=== PATIENT | male | born 1950 | race Caucasian/White ===

== ENCOUNTER → 2017-01-02 | Day surgery (SDC) | payer MEDICARE, MEDICAID ==
[2017-01-02] VITALS (10 sets, daily range): BP systolic 130–151; BP diastolic 74–95; PULSE 52–62; RESP 15–18; O2SAT 99
[~2017-01-02] VITALS: Ht 175.3 cm; Wt 86.2 kg
[~2017-01-02] MED LIST: 0.9% Sodium Chloride 1,000 ML IV SCH; ALBU8.5H2 IH; ASPI-973 PO; Bupivacaine-MPF 0.5% 30 mL Inj ONE; CETI10CA PO; DIPH25CA6 PO; HYDROcodone-APAP 5-325 mg Tablet PO PRN; LOSA25TA21 PO; OMEP20CA11 PO; OXYC-466 PO; OXYC10TA8 PO; Ondansetron 2 mg/mL 2 mL Inj IVPUSH PRN; SIMV20TA4 PO; Sodium Chloride LOK Flush 10 mL Syringe IVFLUSH PRN; TIOT18CA3 IH; Vancomycin 1,000mg/200 mL NS IV ONE; Vancomycin Inj 1,000 MG in IV Premix 1 EACH IV ONE; fentaNYL-PF 50 mCg/mL 2 mL Inj ONE
[2017-01-02 08:35] LABS: BASOPHILS % (AUTO) 0.9 % (0-3); EOSINOPHILS % (AUTO) 4.2 % (0-5); MONOCYTES % (AUTO) 9.4 % (4-12); Mean Corpuscular Hemoglobin 31.3 pg (27.0-35.0); Mean Corpuscular Volume 90.9 fL (81-100); NEUTROPHILS % (AUTO) 59.1 % (40-74); Platelet Count 243 bil/L (150-400)
[2017-01-02 08:38] LABS: INR 0.95 ratio
--- NOTE | 2017-01-02 08:39 | NUR ---
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 Pt. has 2 patent peripheral IVs. He is in SB, high 50s. Discussed pre- and post- procedural expectations with pt. and significant other. Informed consent was signed. 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 Report given to Renee.
--- NOTE | 2017-01-02 09:42 | PCM.PROC ---
Procedure Note Date of Service: Jan 02, 2017 Pre Procedure Diagnosis: Recurrent syncope and collapse Right bundle branch block Post Procedure Diagnosis: Syncope Procedure: Implantable loop recorder implantation Provider and [place] Machine Operator: Hermann Valdez Jr Scrub Indication for Procedure: Syncope and collapse Procedural Analgesia: Local anesthetic alone was used for this case as well as conscious sedation. Please see procedure log for details of medication. Procedure Details: Following informed and signed consent, the patient was taken to the EP laboratory in a fasting nonsedated state. He was prepped in the usual sterile fashion. The left parasternal area was infiltrated with a 50/50 mixture of bupivacaine and lidocaine at the fifth intercostal space. Then using the provided [employer] scalpel a small skin neck was made. Then using the delivery apparatus the loop recorder was implanted subcutaneously. Device interrogation was completed and show adequate sensing and clean signal. The incision was then approximated with a Steri-Strip. The patient tolerated the procedure well. Bradycardia is set at 30 bpm for 4 beats. Tachycardia is set at 167 bpm for 16 beats. Atrial fibrillation detection is on. Sensitivity was 0.035 mV. Post Procedure Plan: Impression: Successful loop recorder implantation 1. Recovery and discharged from [facility]. 2. Wound check in 1 week 3. Follow-up with me in 6 weeks. Chris Sutton MD Jan 02, 2017 09:42
--- NOTE | 2017-01-02 14:10 | NUR ---
Discharge Pt. discharged at 1140. L. chest loop recorder site with steri-strips and clear dressing. Small blood drainage in the center of dressing was was stable in size. No active bleeding noted. Arm sling given to pt. Pt. to wear arm sling for [address] Rizo's office will contact pt. for follow-up appointments (wound care, device check, and cardiology). Reviewed discharge instructions with pt. and significant other. They verbalized understanding. Returned all belongings to pt. Addendum: 01/02/17 at 1422 by RIMA HUBBARD RN crime lab analyst personnel came to explain the use of [employer] monitor during his recovery. Medtronic monitor/transmitter given to pt. on discharge.
== END | disposition home or self-care (01) ==
LOC: SOUO 01:02 → EDSTATUS 10:37
PROVIDERS: ATTEND Internal Medicine Cardiovascular Disease
DX: R55 Syncope and collapse (principal); I45.10 Unspecified right bundle-branch block; I10 Essential (primary) hypertension; Z79.82 Long term (current) use of aspirin; I51.9 Heart disease, unspecified
CPT/HCPCS: 33282; 36415; 80048; 85025; 85610; 99152; C1764; J2250; J3010; J7030